=== PATIENT | male | born 1945 | race American Indian/Alaskan Native ===

== ENCOUNTER 2017-02-07 12:09 | Observation (INO) | payer MEDICARE, OTHER ==
--- NOTE | 2017-02-07 12:51 | C.PDOC ---
History Of Present Illness 71-year-old male, PMHx includes PE and Paroxysmal Atrial Fribrillation on Eloquis, is referred to the emergency by Dr Enriquez, with complaints of new onset chest pain since yesterday. Pain is external and non-exertional. Waxing and waning in nature. In ED patient states pain is "not so bad" reports associated dyspnea on exertion. Denies nausea/vomiting, swelling in extremities , or any other associated symptoms. No other complaints at this time. Time Seen by Provider: 02/07/17 12:29 Chief Complaint (Nursing): Shortness Of Breath History Per: Patient, Family History/Exam Limitations: no limitations Onset/Duration Of Symptoms: Days Current Symptoms Are (Timing): Still Present Past Medical History Reviewed: Historical Data, Nursing Documentation, Vital Signs Vital Signs: Last Vital Signs Temp 97.5 F L 02/09/17 07:20 Pulse 68 02/09/17 08:00 Resp 18 02/09/17 07:20 BP 115/69 02/09/17 07:20 Pulse Ox 98 02/09/17 07:20 - Medical History PMH: HTN (unable to recall HTN meds), Pulmonary Embolism Denies: Chronic Kidney Disease - [facility] Procedures FLUOROSCOPY OF LEFT PULMONARY ARTERY (02/16/16) FLUOROSCOPY OF RIGHT PULMONARY ARTERY (02/16/16) INTRODUCE OF OTH THROMBOLYTIC INTO PERIPH ART, PERC APPROACH (02/16/16) Family History: States: Unknown Family Hx - Social History Hx Alcohol Use: No Hx Substance Use: No - Immunization History Hx Tetanus Toxoid Vaccination: No Hx Influenza Vaccination: No Hx Pneumococcal Vaccination: No Review Of Systems Except As Marked, All Systems Reviewed And Found Negative. Constitutional: Negative for: Fever, Chills Cardiovascular: Positive for: Chest Pain Respiratory: Positive for: SOB with Excertion. Negative for: Shortness of Breath Gastrointestinal: Negative for: Nausea, Vomiting, Diarrhea Musculoskeletal: Negative for: Back Pain Skin: Negative for: Rash Physical Exam - Physical Exam Appears: Non-toxic, No Acute Distress Skin: Warm, Dry, No Rash Head: Atraumatic, Normacephalic Eye(s): bilateral: Normal Inspection, PERRL Nose: Normal Oral Mucosa: Moist Lips: Normal Appearing Neck: Normal ROM Cardiovascular: Rhythm Regular Respiratory: Normal Breath Sounds, No Accessory Muscle Use Extremity: Normal ROM Neurological/Psych: Oriented x3, Normal Speech ED Course And Treatment - Laboratory Results Result Diagrams: 02/08/17 16:44 02/08/17 16:44 ECG: Interpreted By Me ECG Rhythm: Sinus Rhythm ECG Interpretation: Normal Rate From EC O2 Sat by Pulse Oximetry: 98 Pulse Ox Interpretation: Normal - Radiology CXR: Interpreted by Me, Viewed By Me CXR Interpretation: Yes: No Acute Disease Progress - Re-Evaluation Re-evaluation Note: 02/07/17 13:59 EXAM UNCH PRIOR. VSS. D.W DR ENRIQUEZ PRIOR TO PT ARRIVAL. 02/07/17 14:05 D/W DR ARCHULETA AWARE OF ER FINDINGS WILL ADMIT - Data Reviewed Data Reviewed: Lab, Diagnostic imaging, EKG, Old records - Continuity of Care Discussed patient case with:: Patient, Covering for PMD Discussed pt. case with [employer] consultant/specialty: Cardiology Disposition Counseled Patient/Family Regarding: Studies Performed, Diagnosis - Disposition Disposition: HOSPITALIZED Disposition Time: 14:06 Condition: STABLE - POA Present On Arrival: None - Clinical Impression Clinical Impression: Unstable angina - Scribe Statement The provider has reviewed the documentation as recorded by the Scribe Hayde Singleton All medical record entries made by the Scribe were at my direction and personally dictated by me. I have reviewed the chart and agree that the record accurately reflects my personal performance of the history, physical exam, medical decision making, and the department course for this patient. I have also personally directed, reviewed, and agree with the discharge instructions and disposition. Decision To Admit - Pt Status Changed To: Hospital Disposition Of: Inpatient - Admit Certification Admit to Inpatient:: After my assessment, the patient will require hospitalization for at least two midnights. This is because of the severity of symptoms shown, intensity of services needed, and/or the medical risk in this patient being treated as an outpatient. - InPatient: Physician Admission Certification: I certify that this patient requires 2 or more midnights of care for the following reason:: SEE NOTE - . Bed Request Type: Telemetry Admitting Physician: Nehemiah Archuleta Patient Diagnosis: Unstable angina
[2017-02-07] MEDS ORDERED: Aspirin 325 mg EC Tablets PO STA (13:11)
[2017-02-07] MEDS ORDERED: Nitroglycerin 2% Ointment Foilpak UD TOP STA (13:11)
[2017-02-07] MEDS ORDERED: Nitroglycerin 2% Ointment Foilpak UD TOP ONE (13:21)
[2017-02-07] MEDS ORDERED: Aspirin 325 mg EC Tablets PO ONE (13:22)
[2017-02-07 13:32] LABS: BASO # 0.1 K/uL (0.0-0.2); BASO % 0.7 % (0.0-2.0); EOS # 0.1 K/uL (0.0-0.7); EOS % 0.7 % (0.0-4.0); HEMATOCRIT 42.3 % (35.0-51.0); LYMPH # 1.7 K/uL (1.0-4.3); MEAN CELL VOLUME 90.6 fL (80.0-94.0); MEAN CORPUSCULAR HEMOGLOBIN 30.5 pg (27.0-31.0); MEAN CORPUSCULAR HGB CONC 33.7 g/dL (33.0-37.0); MEAN PLATELET VOLUME 7.8 fL (7.2-11.7); MONO # 1.1 K/uL (0.0-0.8); MONO % 12.1 % (0.0-10.0); RED CELL DISTRIBUTION WIDTH 14.5 % (11.5-14.5); WHITE BLOOD COUNT 9.2 K/uL (4.8-10.8)
--- NOTE | 2017-02-07 13:32 | RAD ---
PROCEDURE: CHEST RADIOGRAPH, 1 VIEW HISTORY: chest pain COMPARISON: None available. FINDINGS: LUNGS: Mild bibasilar atelectasis left greater than right PLEURA: No pneumothorax or pleural fluid seen. CARDIOVASCULAR: Borderline -mild cardiomegaly. Aorta slightly ectatic and uncoiled OSSEOUS STRUCTURES: No significant abnormalities. VISUALIZED UPPER ABDOMEN: Normal. OTHER FINDINGS: None. IMPRESSION: Mild bibasilar atelectasis left greater than right Borderline/mild cardiomegaly
[2017-02-07 13:37] LABS: CHLORIDE 102 mmol/L (98-107)
[2017-02-07 13:38] LABS: POTASSIUM 4.2 mmol/L (3.6-5.2); SODIUM 139 mmol/L (132-148)
[2017-02-07 13:40] LABS: CARBON DIOXIDE 25 mmol/L (22-30); GFR AFRICAN-AMERICAN > 60
[2017-02-07 13:41] LABS: ALB/GLOB RATIO 0.9 (1.0-2.1); ALKALINE PHOSPHATASE 75 U/L (38-126); ALT/SGPT 29 U/L (21-72); AST/SGOT 24 U/L (17-59); BLOOD UREA NITROGEN 12 mg/dL (9-20); CALCIUM 8.9 mg/dl (8.6-10.4); GLUCOSE,RANDOM 99 mg/dL (75-110); TOTAL PROTEIN 7.7 g/dL (6.3-8.3)
--- NOTE | 2017-02-07 14:54 | CP.PCM.HP ---
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 He reports having left sided chest pain about 7/10 which waxes and wanes in intesnity. He reports no alleviating or aggrevating factors. He says he feels the pain in both the front of his chest area and also in his back around his shoulder blade. He says the pain started yesterday while he was at home resting. He currently says he is having more pain in his back than in his chest, he describes the pain as sharp and stabbing. He denies any changes in vision, hearing, coughing , admits to few days of sinus congestion, denies palpitations, he denies diaphoresis, raidating pain to his jaw or arm area. He also denies nausea/ vomiting, diarrhea, dysuria, hematuria, lower extremity swelling. He does report sleeping on 3 pillows for several years but denies any orthopena. PMH see above PSH: denies FH: Father had heart diease and DM, Mother DM Social: lives with retired, denies smoking etoh use, or illicit drug use Allergies: NKDA PMD: Dr. Lemus Present on Admission - Present on Admission Any Indicators Present on Admission: No History of DVT/PE: Yes History of Uncontrolled Diabetes: No Urinary Catheter: No Decubitus Ulcer Present: No Decubitus Ulcer Stage: Unstageable History Surgical Site Infection Following: Bariatric Surgery, None Review of Systems - Review of Systems All systems: reviewed and no additional remarkable complaints except - Constitutional Constitutional: absent: Chills, Fever, Malaise - EENT Eyes: absent: Change in Vision Ears: absent: Dizziness Nose/Mouth/Throat: Sinus Pressure, Neck Pain. absent: Sinus Pain - Cardiovascular Cardiovascular: Chest Pain, Palpitations. absent: Claudication, Dyspnea, Leg Edema - Respiratory Respiratory: Chest Congestion. absent: Cough, Dyspnea, Hemoptysis - Gastrointestinal Gastrointestinal: absent: Abdominal Pain, Heartburn, Loose Stools, Nausea, Vomiting - Genitourinary Genitourinary: absent: Dysuria - Musculoskeletal Musculoskeletal: Atrophy, Numbness. absent: Back Pain - Integumentary Integumentary: absent: Change in Hair, Changing Lesions, Dry Skin - Neurological Neurological: absent: Abnormal Hearing, Dizziness, Numbness, Weakness - Psychiatric Psychiatric: absent: Anxiety - Endocrine Endocrine: absent: Fatigue, Palpitations Past Patient History - Tetanus Immunizations Tetanus Immunization: Unknown - Past Medical History & Family History Past Medical History?: Yes - Past Social History Smoking Status: Former Smoker - CARDIAC Hx Hypertension: Yes (unable to recall HTN meds) - PULMONARY Hx Pulmonary Embolism: Yes - NEUROLOGICAL Hx Neurological Disorder: No - HEENT Hx HEENT Problems: Yes Other/Comment: uses eyeglasses for reading - RENAL Hx Chronic Kidney Disease: No - ENDOCRINE/METABOLIC Hx Endocrine Disorders: No - HEMATOLOGICAL/ONCOLOGICAL Hx Blood Disorders: No - INTEGUMENTARY Hx Dermatological Problems: No - MUSCULOSKELETAL/RHEUMATOLOGICAL Hx Musculoskeletal Disorders: No Hx Falls: No - GASTROINTESTINAL Hx Gastrointestinal Disorders: No - GENITOURINARY/GYNECOLOGICAL Hx Genitourinary Disorders: No - PSYCHIATRIC Hx Substance Use: No - SURGICAL HISTORY Hx Surgeries: No - ANESTHESIA Hx Anesthesia: No Hx Anesthesia Reactions: No Hx Malignant Hyperthermia: No Meds Allergies/Adverse Reactions: Allergies Allergy/AdvReac Type Severity Reaction Status Date / Time No Known Allergies Allergy Verified 02/07/17 12:55 Results - Vital Signs Recent Vital Signs: Last Vital Signs Temp 98.1 F 02/07/17 12:25 Pulse 80 02/07/17 14:13 Resp 13 02/07/17 14:13 BP 107/64 02/07/17 14:13 Pulse Ox 98 02/07/17 14:13 - Labs Result Diagrams: 02/07/17 13:22 02/07/17 13:22 Assessment & Plan (1) Unstable angina Assessment and Plan: Patient is admitted to tele/obs, last echo in May of 2016 shows systolic EF of 45% see emr for full report. Labs in the ED were unremarkable. Follow up [place] panels Q6H x2 starting at 1930 , morning cbc, cmp, mag, phos, Hbg A1C, lipid panel, TSH and free T4. Dr. Enriquez is consulted for cardiology, will also do another Echo as well. Ordered Nitro past 1/2 Q6H prn for chest pain, he was given Nitro paste while in the ED. Given Aspirin 325mg in the ED. Will start Aspirin 81mg and Crestor 5mg Status: Acute (2) Pulmonary embolism Assessment and Plan: Patient is on Eliquis 5mg bid, continue that medication, his D-dimer in the ED was negative. Status: Chronic (3) Atrial fibrillation Assessment and Plan: Admitted to tele, continue home Cartia 120mg or its equivalent if not in formula. Continue home Eliquis 5mg bid. Status: Chronic (4) DVT (deep venous thrombosis) Assessment and Plan: continue home elaquis 5mg Status: Chronic (5) Hypertension Assessment and Plan: Continue home Cartia 120mg with appropriate holding parameters given. Status: Chronic (6) Prophylactic measure Assessment and Plan: Pepcid 20mg bid Patient already fully anticoagulant therapy with Eliquis Hold SCDs due to history of DVT. Status: Acute <Nehemiah Archuleta - Last Filed: 02/07/17 21:13> Results - Vital Signs Recent Vital Signs: Last Vital Signs Temp 98.7 F 02/07/17 20:00 Pulse 78 02/07/17 20:00 Resp 20 02/07/17 20:00 BP 120/72 02/07/17 20:00 Pulse Ox 97 02/07/17 20:00 - Labs Result Diagrams: 02/07/17 13:22 02/07/17 13:22 Labs: Laboratory Results - last 24 hr 02/07/17 19:36 Total Creatine Kinase 147 CK-MB (Mass) 0.24 Troponin I, Quant 0.0130 Attending/Attestation - Attestation I have personally seen and examined this patient.: Yes I have fully participated in the care of the patient.: Yes I have reviewed all pertinent clinical information: Yes Notes (Text): 02/07/17 21:10 patient was seen and examined at bedside with the resident at the time of admission We will admit the patient for chest pain and to rule out acute coronary syndrome We will request cardiology evaluation for the patient. I discussed the plan of care with the resident and agree with the above history and physical and assessment/plan by the resident
[2017-02-07] MEDS ORDERED: Nitroglycerin 2% Ointment Foilpak UD TOP PRN (15:00)
[2017-02-08] MEDS ORDERED: Fluticasone Nasal 50 mcg/Spray NAS PRN (07:58)
[2017-02-08] MEDS ORDERED: CARTIA XT 120 MG PO SCH (10:00)
[2017-02-08] MEDS: diltiaZEM 120 mg/24 Hours CD Cap PO SCH (13:52)
--- NOTE | 2017-02-08 16:23 | CP.PCM.PN ---
<Dalila Griffith - Last Filed: 02/08/17 16:21> Subjective - Date & Time of Evaluation Date of Evaluation: 02/08/17 Time of Evaluation: 08:00 - Subjective Subjective: PGY [address] Archuleta: Patient seen and examined at bedside this morning. Patient stated his chest pain had resolved. He stated this pain was more like a pressure and also went to his back. He stated he has been getting this pain for the past few days even at rest and that it will resolve in about 30 min. Patient dies all other complaints this morning such as head aches, vision changes, SOB, abd pain , N/V , diarrhea/constipation, urinary complaints, swelling or pain in the extremities. Patient is to have a stress test done today. Objective - Vital Signs/Intake and Output Vital Signs (last 24 hours): Temp Pulse Resp BP Pulse Ox 97.3 F L 65 20 117/67 96 02/08/17 14:55 02/08/17 14:55 02/08/17 14:55 02/08/17 14:55 02/08/17 14:55 - Medications Medications: Current Medications Apixaban (Eliquis) 5 mg PO BID [facility] Last Admin: 02/08/17 13:53 Dose: 5 mg Aspirin (Ecotrin) 81 mg PO DAILY [facility] Last Admin: 02/08/17 13:53 Dose: 81 mg Diltiazem HCl (Cardizem Cd) 120 mg PO DAILY [facility] Last Admin: 02/08/17 13:52 Dose: 120 mg Famotidine (Pepcid) 20 mg PO BID [facility] Last Admin: 02/08/17 13:53 Dose: 20 mg Fluticasone Propionate (Flonase) 2 spr DAVID DAILY PRN PRN Reason: congestion Last Admin: 02/08/17 13:54 Dose: 2 spr Nitroglycerin (Nitro-Bid 2% Oint) 1 ea TOP Q6H PRN PRN Reason: Other Last Admin: 02/08/17 13:55 Dose: 1 ea Rosuvastatin Calcium (Crestor) 5 mg PO [facility] Last Admin: 02/07/17 21:38 Dose: 5 mg Tramadol HCl (Ultram) 50 mg PO Q6H PRN PRN Reason: Pain, moderate (4-7) Last Admin: 02/07/17 23:57 Dose: 50 mg - Constitutional Appears: Non-toxic, No Acute Distress - Head Exam Head Exam: ATRAUMATIC, NORMAL INSPECTION - Eye Exam Eye Exam: EOMI, Normal appearance, PERRL Pupil Exam: NORMAL ACCOMODATION - ENT Exam ENT Exam: Mucous Membranes Moist - Respiratory Exam Respiratory Exam: Clear to Ausculation Bilateral, NORMAL BREATHING PATTERN. absent: Accessory Muscle Use, Rales, Rhonchi, Wheezes, Respiratory Distress - Cardiovascular Exam Cardiovascular Exam: REGULAR RHYTHM, +S1, +S2 - GI/Abdominal Exam GI & Abdominal Exam: Soft, Normal Bowel Sounds. absent: Distended, Firm, Guarding, Tenderness - Extremities Exam Extremities Exam: Full ROM, Normal Inspection. absent: Calf Tenderness, Pedal Edema - Back Exam Back Exam: NORMAL INSPECTION. absent: CVA tenderness (L), CVA tenderness (R), paraspinal tenderness - Neurological Exam Neurological Exam: Alert, Awake, CN II-XII Intact, Oriented x3 Neuro motor strength exam: Left Upper Extremity: 5, Right Upper Extremity: 5, Left Lower Extremity: 5, Right Lower Extremity: 5 - Psychiatric Exam Psychiatric exam: Normal Affect, Normal Mood - Skin Skin Exam: Dry, Intact, Normal Color, Warm Assessment and Plan - Assessment and Plan (Free Text) Assessment: (1) Unstable angina Assessment and Plan: Patient is admitted to tele/obs, last echo in May of 2016 shows systolic EF of 45% see emr for full report. Labs in the ED were unremarkable. Follow up [place] panel neg x3 Dr. Enriquez is consulted for cardiology, will also do another Echo as well. Ordered Nitro past 1/2 Q6H prn for chest pain, he was given Nitro paste while in the ED. Given Aspirin 325mg in the ED. Will start Aspirin 81mg and Crestor 5mg f/u am labs f/u Echo f/u Stress test results - if negative can be discharged pending cardiology f/u am labs, hba1c, tsh/freet4, lipid panel Status: Acute (2) Pulmonary embolism Hx Assessment and Plan: Patient is on Eliquis 5mg bid, continue that medication, his D-dimer in the ED was negative. Status: Chronic (3) Atrial fibrillation Assessment and Plan: Admitted to tele, continue home Cartia 120mg or its equivalent if not in formula. Continue home Eliquis 5mg bid. Status: Chronic (4) DVT (deep venous thrombosis) HX Assessment and Plan: continue home elaquis 5mg Status: Chronic (5) Hypertension Assessment and Plan: Controlled Continue home Cartia 120mg with appropriate holding parameters given. Status: Chronic (6) Congestion Assessment and Plan: Flonase prn Status: Acute (7) Prophylactic measure Assessment and Plan: Pepcid 20mg bid Patient already fully anticoagulant therapy with Eliquis Hold SCDs due to history of DVT. Status: Acute <GeremiasNehemiah M - Last Filed: 02/11/17 16:23> Objective - Vital Signs/Intake and Output Vital Signs (last 24 hours): Temp Pulse Resp BP Pulse Ox 97.5 F L 68 18 115/69 98 02/09/17 07:20 02/09/17 08:00 02/09/17 07:20 02/09/17 07:20 02/09/17 19:29 - Labs Labs: 02/08/17 16:44 02/08/17 16:44 APTT 36 SECONDS (21-34) H 02/08/17 16:44 Attending/Attestation - Attestation I have personally seen and examined this patient.: Yes I have fully participated in the care of the patient.: Yes I have reviewed all pertinent clinical information, including history, physical exam and plan: Yes Notes (Text): 02/11/17 16:23 Patient was seen and examined at bedside with the resident He is status post cardiac stress test. Follow-up result Discharge planning when cleared by cardiology
[2017-02-08 17:00] LABS: BASO % 0.2 % (0.0-2.0); EOS # 0.4 K/uL (0.0-0.7); EOS % 5.1 % (0.0-4.0); LYMPH # 2.4 K/uL (1.0-4.3); LYMPH % 33.2 % (20.0-40.0); MEAN CORPUSCULAR HEMOGLOBIN 30.1 pg (27.0-31.0); MEAN CORPUSCULAR HGB CONC 33.1 g/dL (33.0-37.0); MEAN PLATELET VOLUME 7.7 fL (7.2-11.7); MONO # 0.7 K/uL (0.0-0.8); MONO % 9.8 % (0.0-10.0); RED CELL DISTRIBUTION WIDTH 14.7 % (11.5-14.5); WHITE BLOOD COUNT 7.3 K/uL (4.8-10.8)
[2017-02-08 17:06] LABS: CHLORIDE 96 mmol/L (98-107); POTASSIUM 4.2 mmol/L (3.6-5.2); SODIUM 137 mmol/L (132-148)
[2017-02-08 17:08] LABS: ALKALINE PHOSPHATASE 74 U/L (38-126); AST/SGOT 21 U/L (17-59); BILIRUBIN,TOTAL 0.8 mg/dL (0.2-1.3); BLOOD UREA NITROGEN 9 mg/dL (9-20); CARBON DIOXIDE 26 mmol/L (22-30); CHOLESTEROL 156 mg/dL (0-199); GFR AFRICAN-AMERICAN > 60; GLUCOSE,RANDOM 111 mg/dL (75-110); TOTAL PROTEIN 7.5 g/dL (6.3-8.3)
[2017-02-08 17:09] LABS: ALT/SGPT 22 U/L (21-72); CALCIUM 8.2 mg/dl (8.6-10.4); MAGNESIUM 1.8 mg/dL (1.6-2.3); PHOSPHOROUS 2.8 mg/dL (2.5-4.5)
[2017-02-08 17:40] LABS: THYROID STIMULATING HORMONE 1.44 mIU/L (0.46-4.68)
--- NOTE | 2017-02-08 22:17 | CP.PCM.PN ---
Subjective - Date & Time of Evaluation Date of Evaluation: 02/08/17 Time of Evaluation: 19:15 - Subjective Subjective: Normal Stress test and Normal EF cardiology point of view cleared for discharge Objective - Vital Signs/Intake and Output Vital Signs (last 24 hours): Temp Pulse Resp BP Pulse Ox 98.7 F 79 20 118/65 97 02/08/17 16:00 02/08/17 16:00 02/08/17 16:00 02/08/17 16:00 02/08/17 16:00 - Medications Medications: Current Medications Apixaban (Eliquis) 5 mg PO BID [facility] Last Admin: 02/08/17 18:38 Dose: 5 mg Aspirin (Ecotrin) 81 mg PO DAILY [facility] Last Admin: 02/08/17 13:53 Dose: 81 mg Diltiazem HCl (Cardizem Cd) 120 mg PO DAILY [facility] Last Admin: 02/08/17 13:52 Dose: 120 mg Famotidine (Pepcid) 20 mg PO BID [facility] Last Admin: 02/08/17 18:38 Dose: 20 mg Fluticasone Propionate (Flonase) 2 spr DAVID DAILY PRN PRN Reason: congestion Last Admin: 02/08/17 13:54 Dose: 2 spr Nitroglycerin (Nitro-Bid 2% Oint) 1 ea TOP Q6H PRN PRN Reason: Other Last Admin: 02/08/17 13:55 Dose: 1 ea Rosuvastatin Calcium (Crestor) 5 mg PO HS [facility] Last Admin: 02/08/17 21:37 Dose: 5 mg Tramadol HCl (Ultram) 50 mg PO Q6H PRN PRN Reason: Pain, moderate (4-7) Last Admin: 02/07/17 23:57 Dose: 50 mg - Labs Labs: 02/08/17 16:44 02/08/17 16:44 APTT 36 SECONDS (21-34) H 02/08/17 16:44
[2017-02-09 08:48] VITALS: BP 115/69; RESP 18; TEMP 97.5; O2SAT 98
[2017-02-09] MEDS: diltiaZEM 120 mg/24 Hours CD Cap PO SCH (09:55)
[2017-02-09 10:33] VITALS: PULSE 68
--- NOTE | 2017-02-09 14:39 | CP.PCM.DIS ---
<Allan Lewis - Last Filed: 02/09/17 14:43> Provider - Provider Date of Admission: 02/07/17 14:07 Attending physician: Nehemiah Archuleta MD Primary care physician: Mariah Consults: Cardio - Mina Time Spent in preparation of Discharge (in minutes): 31 Diagnosis - Discharge Diagnosis (1) Unstable angina Status: Acute (2) Atrial fibrillation Status: Chronic (3) DVT (deep venous thrombosis) Status: Chronic (4) Pulmonary embolism Status: Chronic (5) Hypertension Status: Chronic Hospital Course - Lab Results Lab Results: Most Recent Lab Values WBC 7.3 K/uL (4.8-10.8) 02/08/17 16:44 RBC 4.61 Mil/uL (4.40-5.90) 02/08/17 16:44 Hgb 13.9 g/dL (12.0-18.0) 02/08/17 16:44 Hct 42.0 % (35.0-51.0) 02/08/17 16:44 MCV 91.0 fL (80.0-94.0) 02/08/17 16:44 MCH 30.1 pg (27.0-31.0) 02/08/17 16:44 MCHC 33.1 g/dL (33.0-37.0) 02/08/17 16:44 RDW 14.7 % (11.5-14.5) H 02/08/17 16:44 Plt Count 239 K/uL (130-400) 02/08/17 16:44 MPV 7.7 fL (7.2-11.7) 02/08/17 16:44 Neut % (Auto) 51.7 % (50.0-75.0) 02/08/17 16:44 Lymph % (Auto) 33.2 % (20.0-40.0) 02/08/17 16:44 Boyd % (Auto) 9.8 % (0.0-10.0) 02/08/17 16:44 Eos % (Auto) 5.1 % (0.0-4.0) H 02/08/17 16:44 Baso % (Auto) 0.2 % (0.0-2.0) 02/08/17 16:44 Neut # 3.8 K/uL (1.8-7.0) 02/08/17 16:44 Lymph # 2.4 K/uL (1.0-4.3) 02/08/17 16:44 Boyd # 0.7 K/uL (0.0-0.8) 02/08/17 16:44 Eos # 0.4 K/uL (0.0-0.7) 02/08/17 16:44 Baso # 0.0 K/uL (0.0-0.2) 02/08/17 16:44 APTT 36 SECONDS (21-34) H 02/08/17 16:44 D-Dimer, Quantitative < 200 ng/mlDDU (0-243) 02/07/17 13:22 Sodium 137 mmol/L (132-148) 02/08/17 16:44 Potassium 4.2 mmol/L (3.6-5.2) 02/08/17 16:44 Chloride 96 mmol/L (98-107) L 02/08/17 16:44 Carbon Dioxide 26 mmol/L (22-30) 02/08/17 16:44 Anion Gap 19 (10-20) 02/08/17 16:44 BUN 9 mg/dL (9-20) 02/08/17 16:44 Creatinine 1.1 MG/DL (0.8-1.5) 02/08/17 16:44 Est GFR ( Amer) > 60 02/08/17 16:44 Est GFR (Non-Af Amer) > 60 02/08/17 16:44 Random Glucose 111 mg/dL (75-110) H 02/08/17 16:44 Hemoglobin A1c 5.9 % (4.2-6.5) 02/08/17 16:44 Calcium 8.2 mg/dl (8.6-10.4) L 02/08/17 16:44 Phosphorus 2.8 mg/dL (2.5-4.5) 02/08/17 16:44 Magnesium 1.8 mg/dL (1.6-2.3) 02/08/17 16:44 Total Bilirubin 0.8 mg/dL (0.2-1.3) 02/08/17 16:44 AST 21 U/L (17-59) 02/08/17 16:44 ALT 22 U/L (21-72) 02/08/17 16:44 Alkaline Phosphatase 74 U/L (38-126) 02/08/17 16:44 Total Creatine Kinase 103 U/L (55-170) 02/08/17 02:00 CK-MB (Mass) < 0.22 ng/mL (0.0-3.38) 02/08/17 02:00 Troponin I < 0.0120 ng/mL (0.00-0.120) 02/07/17 13:22 Troponin I, Quant < 0.0120 ng/mL (0.00-0.120) 02/08/17 02:00 Total Protein 7.5 g/dL (6.3-8.3) 02/08/17 16:44 Albumin 3.8 g/dL (3.5-5.0) 02/08/17 16:44 Globulin 3.7 gm/dL (2.2-3.9) 02/08/17 16:44 Albumin/Globulin Ratio 1.0 (1.0-2.1) 02/08/17 16:44 Triglycerides 109 mg/dL (0-149) 02/08/17 16:44 Cholesterol 156 mg/dL (0-199) 02/08/17 16:44 LDL Cholesterol Direct 72 mg/dL (0-129) 02/08/17 16:44 HDL Cholesterol 38 mg/dL (30-70) 02/08/17 16:44 Free T4 0.88 ng/dL (0.78-2.19) 02/08/17 16:44 TSH 3rd Generation 1.44 mIU/L (0.46-4.68) 02/08/17 16:44 - Hospital Course Hospital Course: On hospital admission Patient is a 71 year old male with a history of PE, Afib, and HTN was sent his [employer] specialist Dr. Enriquez for possible unstable agina. He reports having left sided chest pain about 7/10 which waxes and wanes in intesnity. He reports no alleviating or aggrevating factors. He says he feels the pain in both the front of his chest area and also in his back around his shoulder blade. He says the pain started yesterday while he was at home resting. He currently says he is having more pain in his back than in his chest, he describes the pain as sharp and stabbing. He denies any changes in vision, hearing, coughing , admits to few days of sinus congestion, denies palpitations, he denies diaphoresis, raidating pain to his jaw or arm area. He also denies nausea/ vomiting, diarrhea, dysuria, hematuria, lower extremity swelling. He does report sleeping on 3 pillows for several years but denies any orthopena. On hospital course The patient was admitted with chest pain with a hx of PE. Cardiology (Mina) was consulted and wanted a stress test in addition to serial JUAN panel and echocardiogram. Echocardiogram showed an EF of >50% and his stress test was normal as well. All JUAN's were negative and the remainder of his labs were unremarkable as well. Cardiology cleared the patient for discharge and pt was discharged in stable condition with instructions to follow up with his primary care provider (Mariah) in 1-2 weeks and to resume all home medications. - Date & Time of H&P Date of H&P: 02/07/17 Time of H&P: 14:53 Discharge Exam - Head Exam Head Exam: ATRAUMATIC, NORMAL INSPECTION - Eye Exam Eye Exam: Normal appearance Pupil Exam: PERRL - Respiratory Exam Respiratory Exam: Clear to PA & Lateral, UNREMARKABLE - Cardiovascular Exam Cardiovascular Exam: Irregular Rhythm, +S1, +S2 - GI/Abdominal Exam GI & Abdominal Exam: Normal Bowel Sounds, Unremarkable - Neurological Exam Neurological exam: Alert, Oriented x3 - Skin Skin Exam: Dry, Warm Discharge Plan - Follow Up Plan Condition: STABLE Disposition: HOME/ ROUTINE Instructions: Angina (DC), Atrial Fibrillation (DC), Hypertension (DC), Hypertension (GEN) Additional Instructions: follow up with your primary md (Dr. Lemus) in 1 to 2 weeks <Lewis Akhtar - Last Filed: 02/26/17 22:44> Provider - Provider Date of Admission: 02/07/17 14:07 Attending physician: Nehemiah Archuleta MD Hospital Course - Lab Results Lab Results: Most Recent Lab Values WBC 7.3 K/uL (4.8-10.8) 02/08/17 16:44 RBC 4.61 Mil/uL (4.40-5.90) 02/08/17 16:44 Hgb 13.9 g/dL (12.0-18.0) 02/08/17 16:44 Hct 42.0 % (35.0-51.0) 02/08/17 16:44 MCV 91.0 fL (80.0-94.0) 02/08/17 16:44 MCH 30.1 pg (27.0-31.0) 02/08/17 16:44 MCHC 33.1 g/dL (33.0-37.0) 02/08/17 16:44 RDW 14.7 % (11.5-14.5) H 02/08/17 16:44 Plt Count 239 K/uL (130-400) 02/08/17 16:44 MPV 7.7 fL (7.2-11.7) 02/08/17 16:44 Neut % (Auto) 51.7 % (50.0-75.0) 02/08/17 16:44 Lymph % (Auto) 33.2 % (20.0-40.0) 02/08/17 16:44 Boyd % (Auto) 9.8 % (0.0-10.0) 02/08/17 16:44 Eos % (Auto) 5.1 % (0.0-4.0) H 02/08/17 16:44 Baso % (Auto) 0.2 % (0.0-2.0) 02/08/17 16:44 Neut # 3.8 K/uL (1.8-7.0) 02/08/17 16:44 Lymph # 2.4 K/uL (1.0-4.3) 02/08/17 16:44 Boyd # 0.7 K/uL (0.0-0.8) 02/08/17 16:44 Eos # 0.4 K/uL (0.0-0.7) 02/08/17 16:44 Baso # 0.0 K/uL (0.0-0.2) 02/08/17 16:44 APTT 36 SECONDS (21-34) H 02/08/17 16:44 D-Dimer, Quantitative < 200 ng/mlDDU (0-243) 02/07/17 13:22 Sodium 137 mmol/L (132-148) 02/08/17 16:44 Potassium 4.2 mmol/L (3.6-5.2) 02/08/17 16:44 Chloride 96 mmol/L (98-107) L 02/08/17 16:44 Carbon Dioxide 26 mmol/L (22-30) 02/08/17 16:44 Anion Gap 19 (10-20) 02/08/17 16:44 BUN 9 mg/dL (9-20) 02/08/17 16:44 Creatinine 1.1 MG/DL (0.8-1.5) 02/08/17 16:44 Est GFR ( Amer) > 60 02/08/17 16:44 Est GFR (Non-Af Amer) > 60 02/08/17 16:44 Random Glucose 111 mg/dL (75-110) H 02/08/17 16:44 Hemoglobin A1c 5.9 % (4.2-6.5) 02/08/17 16:44 Calcium 8.2 mg/dl (8.6-10.4) L 02/08/17 16:44 Phosphorus 2.8 mg/dL (2.5-4.5) 02/08/17 16:44 Magnesium 1.8 mg/dL (1.6-2.3) 02/08/17 16:44 Total Bilirubin 0.8 mg/dL (0.2-1.3) 02/08/17 16:44 AST 21 U/L (17-59) 02/08/17 16:44 ALT 22 U/L (21-72) 02/08/17 16:44 Alkaline Phosphatase 74 U/L (38-126) 02/08/17 16:44 Total Creatine Kinase 103 U/L (55-170) 02/08/17 02:00 CK-MB (Mass) < 0.22 ng/mL (0.0-3.38) 02/08/17 02:00 Troponin I < 0.0120 ng/mL (0.00-0.120) 02/07/17 13:22 Troponin I, Quant < 0.0120 ng/mL (0.00-0.120) 02/08/17 02:00 Total Protein 7.5 g/dL (6.3-8.3) 02/08/17 16:44 Albumin 3.8 g/dL (3.5-5.0) 02/08/17 16:44 Globulin 3.7 gm/dL (2.2-3.9) 02/08/17 16:44 Albumin/Globulin Ratio 1.0 (1.0-2.1) 02/08/17 16:44 Triglycerides 109 mg/dL (0-149) 02/08/17 16:44 Cholesterol 156 mg/dL (0-199) 02/08/17 16:44 LDL Cholesterol Direct 72 mg/dL (0-129) 02/08/17 16:44 HDL Cholesterol 38 mg/dL (30-70) 02/08/17 16:44 Free T4 0.88 ng/dL (0.78-2.19) 02/08/17 16:44 TSH 3rd Generation 1.44 mIU/L (0.46-4.68) 02/08/17 16:44 Attending/Attestation - Attestation I have personally seen and examined this patient.: Yes I have fully participated in the care of the patient.: Yes I have reviewed all pertinent clinical information, including history, physical exam and plan: Yes
--- NOTE | 2017-02-09 14:51 | CARD ---
APPROVED REPORT EKG Measurement Heart [id number] [id number] <Conclusion> nsr,pvcs,apcs Left axis deviation Cannot rule out Anterior infarct, age undetermined Abnormal ECG
--- NOTE | 2017-02-09 20:00 | CP.PCM.PN ---
Subjective - Date & Time of Evaluation Date of Evaluation: 02/09/17 Time of Evaluation: 07:30 - Subjective Subjective: Patient seen and evaluated. Denies chest pain and dyspnea Physical Examination - Constitutional Appears: Non-toxic, No Acute Distress - Head Exam Head Exam: ATRAUMATIC, NORMAL INSPECTION - Eye Exam Eye Exam: EOMI, Normal appearance, PERRL Pupil Exam: NORMAL ACCOMODATION - ENT Exam ENT Exam: Mucous Membranes Moist - Respiratory Exam Respiratory Exam: Clear to Ausculation Bilateral, NORMAL BREATHING PATTERN. absent: Accessory Muscle Use, Rales, Rhonchi, Wheezes, Respiratory Distress - Cardiovascular Exam Cardiovascular Exam: REGULAR RHYTHM, +S1, +S2 - GI/Abdominal Exam GI & Abdominal Exam: Soft, Normal Bowel Sounds. absent: Distended, Firm, Guarding, Tenderness - Extremities Exam Extremities Exam: Full ROM, Normal Inspection. absent: Calf Tenderness, Pedal Edema - Back Exam Back Exam: NORMAL INSPECTION. absent: CVA tenderness (L), CVA tenderness (R), paraspinal tenderness - Neurological Exam Neurological Exam: Alert, Awake, CN II-XII Intact, Oriented x3 Neuro motor strength exam: Left Upper Extremity: 5, Right Upper Extremity: 5, Left Lower Extremity: 5, Right Lower Extremity: 5 - Psychiatric Exam Psychiatric exam: Normal Affect, Normal Mood - Skin Skin Exam: Dry, Intact, Normal Color, Warm Objective - Vital Signs/Intake and Output Vital Signs (last 24 hours): Temp Pulse Resp BP Pulse Ox 97.5 F L 68 18 115/69 98 02/09/17 07:20 02/09/17 08:00 02/09/17 07:20 02/09/17 07:20 02/09/17 19:29 - Labs Labs: 02/08/17 16:44 02/08/17 16:44 APTT 36 SECONDS (21-34) H 02/08/17 16:44 Assessment and Plan - Assessment and Plan (Free Text) Assessment: (1) Non Cardiac Chest Pain Stress test normal Normal EF (2) Pulmonary embolism Hx Assessment and Plan: Patient is on Eliquis 5mg bid, continue that medication, his D-dimer in the ED was negative. Status: Chronic (3) Atrial fibrillation Assessment and Plan: Admitted to [facility], continue home Cartia 120mg or its equivalent if not in formula. Continue home Eliquis 5mg bid. Status: Chronic (4) DVT (deep venous thrombosis) HX Assessment and Plan: continue home elaquis 5mg Status: Chronic (5) Hypertension Assessment and Plan: Controlled Continue home Cartia 120mg with appropriate holding parameters given. Status: Chronic (6) Congestion Assessment and Plan: Flonase prn Status: Acute (7) Prophylactic measure Assessment and Plan: Pepcid 20mg bid Patient already fully anticoagulant therapy with Eliquis Hold SCDs due to history of DVT. Status: Acute
--- NOTE | 2017-02-10 15:38 | CARD ---
APPROVED REPORT EXAM: Two-dimensional and M-mode echocardiogram with Doppler and color Doppler. Other Information Quality : GoodRhythm : INDICATION Atrial Fibrillation Pulmonary Embolism Chest Pain UNSTABLE ANGINA M-Mode DIMENSIONS RVDd2.82 (2.1-3.2cm)Left Atrium (MM)3.90 (2.5-4.0cm) IVSd1.29 (0.7-1.1cm)Aortic Root3.95 (2.2-3.7cm) LVDd5.68 (4.0-5.6cm)Aortic Cusp Exc.1.82 (1.5-2.0cm) PWd1.34 (0.7-1.1cm)FS (%) 31 % LVDs3.91 (2.0-3.8cm)LVEF (%)58 (>50%) Aortic Valve AoV Peak Ntmbdywl333.2cm/Hiram Peak GR.6mmHg Mitral Valve MV E Aoqpzeio49.0cm/sMV A Uwawbjtc20.7cm/sE/A ratio0.8 TDI E/Lateral E'0.0E/Medial E'0.0 Tricuspid Valve TR Peak Tflfeubx647ic/sTR Peak Gr.78xrPoLSJF24tuYw <Conclusion> normal size la,lv & ra rv. mild concentric lvh with normal lvef of 55-60%. lv diastolic dysfunction grade one. sclerotic trileaflet aortic valve & root. mitral,tv & pv grossly appears normal. mild tr with normal pulmonary systolic pressures of 30 mm of hg. no pericardial effusion.
--- NOTE | 2017-02-22 16:13 | CARD ---
APPROVED REPORT Protocol: PHARMACOLOGICAL STRESS Test Type: LEXISCAN Test Indications: CHEST PAIN Medications: LIST SCAN Medical History: CHEST PAIN Target HR: 149 bpm Resting ECG: PVCs Resting Heart Rate: 66 bpm Resting Blood Pressure: 130/70mmHg submaximum (85%): 127 bpm TEST SUMMARY [id number]:[id number]/70.1. INFUSIONDOSE 100:320.00.01.006045/60.0. LGFJEHTGL83:090.00.01.089/.6. PROCEDURE Pharmacologic stress testing was performed using 0.4mg per 5ml of regadenoson given intravenously over 7-10 seconds. POST EXERCISE Reason for Termination: Lexiscan protocol completed Target HR: No Max HR: 59 bpm 59% of Maximum Predicted HR: 149 bpm Exercise duration: 00:31 min:sec, 0 Stage Exercise capacity: 1.0METs Max Blood Pressure: 130/70mmHg Blood Pressure response to exercise: normal resting BP - appropriate response Heart Rate response to exercise: appropriate Chest Pain: No, none Angina index: 0 Arrhythmia: No, none ST Change: No, none Deviation: 0 mm INTERPRETATION Stress EKG Conclusion: Nuclear report to follow EXAM: Myocardial Perfusion STRESS/REST Imaging Protocol The imaging protocol used to acquire images was Stress Tc-99m/rest Tc-99m 1 day Rest Spect myocardial perfusion imaging was performed in supine position 45 minutes following the injection of 31.4 mCi of Tc-99 Myoview. Gated Stress Spect was performed 45 minutes after intravenous 12.9 mCi Tc-99 Myoview injection. The images were gated to evaluate regional wall motion and calculate ventricular ejection fraction.Images were reconstructed using backfilter projection method in short horizontal and verticle long axis. Spect slices were generated. RESTING DATA MNK286.03lfBL9.60L/min ESV57.00mlMyocardial Piqe487.00g Av. Heart Rate79.00bpm EF60.00% STRESS DATA KSU195.10yqBV9.50L/min ESV42.00mlMyocardial Mqep546.00g EF61.00% Regional WT score at stress:0.00 Regional WM score at stress:0.00 Summed WT score at stress:8.00 Av. Heart Rate85.00bpmSummed WM score at stress:4.00 LV Perf. Quant 17 Seg. SSS6.00 17 Seg. SRS1.00 17 Seg. SDS5.00 Stress Defect Extent (% LAD)0.60Rest Defect Extent (% LAD)0.00Rev. Defect Extent (% LAD)0.60 Stress Defect Extent (% LCX)30.00Rest Defect Extent (% LCX)8.80Rev. Defect Extent (% LCX)10.00 Stress Defect Extent (% RCA)0.00Rest Defect Extent (% RCA)0.00Rev. Defect Extent (% RCA)0.00 Stress Defect Extent (% RITESH)10.00Rest Defect Extent (% RITESH)2.20Rev. Defect Extent (% RITESH)4.10 Other Information Quality:Good IMPRESSION Normal Myocardial Perfusion exercise stress study Left Ventricle LV Size/Shape: The left ventricle is normal size. LV Function:Left ventricle systolic function is normal. The Ejection Fraction is 65-70%. Conclusion 1. Normal Lexiscan nuclear stress test. Normal EF
== END 2017-02-09 13:51 | disposition home or self-care (01) ==
LOC: C.ER 12:09 → INTOOBSV 14:07 → C.9E 14:07 → C.5T 18:57 → C.6T 02-08 14:57
PROVIDERS: ADMIT Internal Medicine; ATTEND Internal Medicine
DX: I20.0 Unstable angina (principal); I48.91 Unspecified atrial fibrillation; I10 Essential (primary) hypertension; Z86.718 Personal history of other venous thrombosis and embolism; Z79.01 Long term (current) use of anticoagulants; Z83.3 Family history of diabetes mellitus; Z82.49 Family history of ischemic heart disease and other diseases of the circulatory system; Z86.711 Personal history of pulmonary embolism
CPT/HCPCS: 36415; 71010; 78452; 80053; 80061; 83036; 83735; 84100; 84439; 84443; 84484; 85025; 85378; 85730; 93005; 93017; 93306; 99285; A9502; G0378

== ENCOUNTER 2018-01-10 06:23 | Day surgery (SDC) | payer MEDICARE ==
[2018-01-06 10:22] VITALS: BMI 35.8
[2018-01-10] MEDS ORDERED: Lidocaine 2% Inj (20ml) ONE (07:21)
[2018-01-10] MEDS ORDERED: Iodixanol 320 MG/ML 200 ML BOTTLE IV ONE (08:05)
[2018-01-10] MEDS ORDERED: DiphenhydrAMINE 50 mg/ml Inj ONE (08:06)
[2018-01-10] MEDS ORDERED: Midazolam 2 MG/2 ML VIAL ONE (08:07)
[2018-01-10] MEDS ORDERED: Sodium Chloride 0.45% 1,000 ML IV SCH (08:45)
[2018-01-10 12:42] VITALS: RESP 18; TEMP 97.2; O2SAT 100
[2018-01-10 14:26] VITALS: BP 118/70; PULSE 72
--- NOTE | 2018-01-13 10:20 | CARDCATH ---
PROCEDURE DATE: 01/10/2018 PROCEDURES: 1. Left heart catheterization. 2. Coronary angiogram. 3. Radiological supervision and radiological interpretation of the left heart catheterization and coronary angiogram. CLINICAL INDICATIONS: 1. Abnormal stress test. 2. Hypertension. 3. Hyperlipidemia. PERFORMING PHYSICIAN: Dr. Amaury Enriquez. PROCEDURE: After informed consent, the patient was prepped and draped in the usual sterile fashion. 2% lidocaine was given in the right hand for local anesthesia. Using micropuncture technique, 6-[place]i sheath was introduced into right common femoral artery. A 6-[place] JL4 diagnostic catheter engaged into left main coronary artery. Contrast injected and left coronary angiogram was performed. A 6-[place] JR4 diagnostic catheter engaged into the right coronary artery. Contrast injected and right coronary angiogram was performed. JR4 6 [place]i diagnostic catheter crossed into the left ventricle across the aortic valve. LV end-diastolic pressure measured. Contrast injected and LV angiography was performed. The catheter was pulled back across the aortic valve. Pressure gradient across the aortic valve measured. The patient tolerated the procedure well. FINDINGS: 1. Left main coronary artery patent. 2. LAD and diagonal branches are patent. 3. Left circumflex and obtuse marginal branches are patent. 4. Right coronary artery is dominant and patent. 5. LV ejection fraction is approximately 65%. No wall motion abnormalities noted. EDP is 17. No gradient across the aortic valve. IMPRESSION: 1. Normal coronaries.. 2. Normal left ventricular systolic function. Amaury Enriquez MD
== END 2018-01-10 15:29 | disposition home or self-care (01) ==
LOC: C.CATHLAB 06:23
PROVIDERS: ATTEND Internal Medicine Cardiovascular Disease
DX: R94.39 Abnormal result of other cardiovascular function study (principal); I10 Essential (primary) hypertension; E78.5 Hyperlipidemia, unspecified; I48.0 Paroxysmal atrial fibrillation
CPT/HCPCS: 93452; C1760; C1769; C1887; C1893; J1644; J2250; J3010; J7030; Q9966

== ENCOUNTER 2018-02-07 06:17 | Day surgery (SDC) | payer MEDICARE ==
[2018-02-07] MEDS ORDERED: Midazolam 2 MG/2 ML VIAL ONE (09:00)
[2018-02-07] MEDS ORDERED: Lidocaine 2% Inj (20ml) ONE (09:05)
[2018-02-07] MEDS ORDERED: Iohexol 350mg/ml 100 ML ONE ×2 (09:13→09:53)
[2018-02-07 10:36] VITALS: BMI 35.3
--- NOTE | 2018-02-08 18:56 | CARDCATH ---
PROCEDURE DATE: PROCEDURES: 1. Inferior vena cava angiogram. 2. Inferior vena cava filter placement. 3. Radiological supervision and interpretation of the above-mentioned procedure. CLINICAL INDICATIONS: 1. History of multiple deep venous thromboses. 2. History of multiple pulmonary embolism. 3. Atrial fibrillation. 4. The patient is scheduled for knee replacement. PERFORMING PHYSICIAN: Amaury Enriquez MD. BRIEF CLINICAL HISTORY: Rose Marie Euceda is a 72-year-old gentleman with history of multiple DVTs and pulmonary embolism and atrial fibrillation, on lifelong anticoagulation therapy. The patient is scheduled for knee replacement. Due to the high risk of recurrent thromboembolic events due to sensation of anticoagulation therapy and recurrent PE, the patient is advised to undergo prophylactic IVC filter placement prior to knee replacement surgery. I explained to the patient about the inferior vena cava filter placement. Benefits were explained. Complications were explained, which include but not limited to bleeding, device erosion, lost vein and artery damage, and potential . I also explained to the patient sometimes the device may not be retrievable and may have to leave the device permanently in the body, which can have a long-term consequence which include arterial and vein damage, bleeding, device migration, and potentially . The patient agreed and signed the consent. was at the bedside during the discussions, who also agreed to proceed with filter placement. The patient was prepped and draped in the usual sterile fashion, 2% lidocaine was given in the right groin for local anesthesia. Using micropuncture technique, a 7-Grenadian sheath was introduced into the right common femoral vein. Pigtail catheter was introduced into the right common iliac vein. Contrast injected and inferior vena cava angiogram was performed. There was single inferior vena cava noted. There is an organized thrombus noted in the common femoral vein and below. The 7-Grenadian sheath was exchanged to a Cook sheath. With the roadmap technique, the renal veins were identified. Cook Celect pauma IVC filter deployed just below the renal vein without complications. Final angiogram confirmed excellent filter placement position. The sheath was pulled manually and excellent hemostasis accomplished. CONCLUSION: Successful Cook Celect pauma inferior vena cava filter placement. The patient will be observed for additional two hours, and followed by discharge to home. Amaury Enriquez MD [facility] # [id number]
== END 2018-02-07 12:30 | disposition home or self-care (01) ==
LOC: C.SPRAD 06:17
PROVIDERS: ATTEND Internal Medicine Cardiovascular Disease
DX: I48.91 Unspecified atrial fibrillation (principal); Z79.01 Long term (current) use of anticoagulants; Z86.711 Personal history of pulmonary embolism; Z86.718 Personal history of other venous thrombosis and embolism
CPT/HCPCS: 37191; 75825; C1880; C1894; J1644; J2250; J3010; Q9967

== ENCOUNTER 2019-02-10 10:40 | Outpatient (CLI) | payer MEDICARE | END 2019-02-10 10:41 | disposition home or self-care (01) | LOC: C.CTH 10:40 ==

== ENCOUNTER 2019-02-23 18:07 | Outpatient (CLI) | payer MEDICARE | END 2019-02-23 18:08 | disposition home or self-care (01) | LOC: C.SLEEP 18:08 | DX: G47.33 Obstructive sleep apnea (adult) (pediatric) (principal) ==